=== PATIENT | male | born 1945 | race African-American/Black ===

== ENCOUNTER 2017-10-11 09:53 | Day surgery (SDC) | payer OTHER, BC ==
[2017-10-10 10:34] VITALS: BMI 24.3
[2017-10-11 16:17] VITALS: TEMP 98
[2017-10-11 16:34] VITALS: BP 136/76; PULSE 69
== END 2017-10-11 16:45 | disposition home or self-care (01) ==
LOC: JASU-SURG 09:53
PROVIDERS: ATTEND Urology
PROC: 0V503ZZ Destruction of Prostate, Percutaneous Approach (ICD-10-PCS; principal; 2017-10-11)
DX: C61 Malignant neoplasm of prostate (principal)
CPT/HCPCS: 55873; C2618; 94760

== ENCOUNTER 2017-10-20 00:25 | Emergency (ER) | payer OTHER ==
--- NOTE | 2017-10-20 00:36 | PDOC ---
History of Present Illness - General History Source: Patient, Family Exam Limitations: No Limitations - History of Present Illness Initial Comments: 10/20/17 01:36 Patient is a 72 year old male with a significant past medical history of HTN, who presents to the ED with complaints of urinary retention that began earlier today while at home. Patient reports getting a prostate biopsy last week due to blood results indicating high levels of PSA. He reports being fine and not experiencing any negatives symptoms following the procedure until this afternoon. Patient reports experiencing gradually increased abdominal pain secondary to urinary retention. Denies chest pain, Sob. Denies nausea, vomiting. Denies trauma to affected area. Denies constipation, diarrhea. Denies contact with sick individuals, out of state travelling. Denies any other symptoms. Allergies: None Social history: No smoking. No alcohol. No illicit drugs. Surgical history: prostate cryoablation and cystoscopy PMD: Dr. Tao, Dr. Graham <Jorgito Ramirez - Last Filed: 10/20/17 01:36> <Vanda Yu - Last Filed: 10/21/17 03:11> - General Stated Complaint: PAIN Time Seen by Provider: 10/20/17 00:32 Past History <Jorgito Ramirez - Last Filed: 10/20/17 01:36> - Past Medical History Anemia: No Asthma: No Cancer: No Cardiac Disorders: No CVA: No COPD: No CHF: No Dementia: No Diabetes: No GI Disorders: No Disorders: No HTN: Yes Hypercholesterolemia: No Liver Disease: No Seizures: No Thyroid Disease: No - Surgical History Appendectomy: Yes - Suicide/Smoking/Psychosocial Hx Smoking History: Never smoked Hx Alcohol Use: No Drug/Substance Use Hx: No Substance Use Type: None Hx Substance Use Treatment: No <Vanda Yu - Last Filed: 10/21/17 03:11> - Past Medical History Allergies/Adverse Reactions: Allergies Allergy/AdvReac Type Severity Reaction Status Date / Time No Known Allergies Allergy Verified 10/20/17 00:42 Home Medications: Ambulatory Orders Amlodipine Besylate [Norvasc -] 10 mg PO DAILY 10/10/17 Benazepril/Hydrochlorothiazide [Benazepril-Hctz 20-25 mg Tab] 1 each PO DAILY Oxycodone HCl/Acetaminophen [Percocet 5-325 mg Tablet] 1 - 2 tab PO Q4H PRN #20 tablet MDD 6 10/11/17 Sulfamethoxazole/Trimethoprim [Bactrim Ds Tablet] 1 each PO DAILY 10/11/17 Review of Systems - Review of Systems Able to Perform ROS?: Yes Comments:: 10/20/17 01:36 GENERAL/CONSTITUTIONAL: No fever or chills. No weakness. HEAD, EYES, EARS, NOSE AND THROAT: No change in vision. No ear pain or discharge. No sore throat. CARDIOVASCULAR: No chest pain or shortness of breath. RESPIRATORY: No cough, wheezing, or hemoptysis. GASTROINTESTINAL: No nausea, vomiting, diarrhea or constipation. GENITOURINARY: +Urinary retention. No dysuria, frequency MUSCULOSKELETAL: No joint or muscle swelling or pain. No neck or back pain. SKIN: No rash NEUROLOGIC: No headache, vertigo, loss of consciousness, or change in strength/ sensation. ENDOCRINE: No increased thirst. No abnormal weight change. HEMATOLOGIC/LYMPHATIC: No anemia, easy bleeding, or history of blood clots. ALLERGIC/IMMUNOLOGIC: No hives or skin allergy. <Jorgito Ramirez - Last Filed: 10/20/17 01:36> *Physical Exam - Vital Signs Last Vital Signs Temp Pulse Resp BP Pulse Ox 97.7 F 121 H 24 154/78 99 10/20/17 00:37 10/20/17 00:37 10/20/17 00:37 10/20/17 00:37 10/20/17 00:37 - Physical Exam Comments: 10/20/17 01:36 GENERAL: Awake, alert, and fully oriented, in no acute distress HEAD: No signs of trauma EYES: PERRLA, EOMI, sclera anicteric, conjunctiva clear ENT: Auricles normal inspection, hearing grossly normal, nares patent, oropharynx clear without exudates. Moist mucosa NECK: Normal ROM, supple, no lymphadenopathy, JVD, or masses LUNGS: Breath sounds equal, clear to auscultation bilaterally. No wheezes, and no crackles HEART: Regular rate and rhythm, normal S1 and S2, no murmurs, rubs or gallops ABDOMEN: Soft, nontender, normoactive bowel sounds. No guarding, no rebound. No masses EXTREMITIES: Normal range of motion, no edema. No clubbing or cyanosis. No cords, erythema, or tenderness NEUROLOGICAL: Cranial nerves II through XII grossly intact. Normal speech, normal gait SKIN: Warm, Dry, normal turgor, no rashes or lesions noted. <Jorgito Ramirez - Last Filed: 10/20/17 01:36> ED Treatment Course - ADDITIONAL ORDERS Additional order review: Laboratory Results 10/20/17 00:40 Urine Color Straw Urine Appearance Clear Urine pH 7.[address] 1.010 Urine Protein Negative Urine Glucose (UA) Negative Urine Ketones Negative Urine Blood 2+ H Urine Nitrite Negative Urine Bilirubin Negative Urine Urobilinogen Negative Ur Leukocyte Esterase Negative Urine WBC (Auto) 3 Urine RBC (Auto) 20 Ur Epithelial Cells Rare Urine Mucus Rare <Jorgito Ramirez - Last Filed: 10/20/17 01:36> Medical Decision Making - Medical Decision Making 10/21/17 03:10 Pt comes with severe pain. Urinary retention. Olvera cath placed by myself. Pt got immediate relief. 1L urine drained. 10/21/17 03:11 Urine clear. No sign of infection. Pt had leg bag placed and he will follow with his urologist. <Vanda Yu - Last Filed: 10/21/17 03:11> *DC/Admit/Observation/Transfer - Attestations Scribe Attestion: 10/20/17 01:36 Documentation prepared by Jorgito Ramirez, acting as chief medical director for Vanda Yu MD/DO. <Jorgito Ramirez - Last Filed: 10/20/17 01:36> - Discharge Dispostion Admit: No <Vanda Yu - Last Filed: 10/21/17 03:11> Diagnosis at time of Disposition: Urinary retention - Discharge Dispostion Disposition: HOME Condition at time of disposition: Improved - Referrals Referrals: Madi Ni MD [Staff Physician] - - Patient Instructions Printed Discharge Instructions: DI for Urinary Retention in Men
[2017-10-20 00:52] LABS: URINE APPEARANCE CLEAR; URINE BILIRUBIN NEGATIVE (<2.0 mg/dL); URINE BLOOD 2+ (NEGATIVE); URINE COLOR STRAW; URINE GLUCOSE (UA) NEGATIVE (NEGATIVE); URINE KETONE NEGATIVE (NEGATIVE); URINE LEUK ESTERASE NEGATIVE (NEGATIVE); URINE NITRITE NEGATIVE (NEGATIVE); URINE PROTEIN NEGATIVE (NEGATIVE); URINE UROBILINOGEN NEGATIVE mg/dL (0.2-1.0)
[2017-10-20 00:56] VITALS: BP 154/78; PULSE 121; TEMP 97.7; BMI 25.0
[2017-10-20 01:02] LABS: EPI CELLS RARE /HPF (FEW); URINE MUCUS RARE
== END 2017-10-20 01:39 | disposition home or self-care (01) ==
LOC: JER 00:25
PROC: 0T9B70Z Drainage of Bladder with Drainage Device, Via Natural or Artificial Opening (ICD-10-PCS; principal; 2017-10-20)
DX: R33.8 Other retention of urine (principal)
CPT/HCPCS: 51702; 81003; 81015; 99282-25

== ENCOUNTER 2017-10-30 09:32 | Emergency (ER) | payer OTHER, BC ==
[2017-10-30 09:42] VITALS: TEMP 98.6; BMI 24.4
--- NOTE | 2017-10-30 10:07 | PDOC ---
History of Present Illness - General History Source: Patient, Old Records Exam Limitations: No Limitations - History of Present Illness Initial Comments: 10/30/17 11:20 The patient is a 72 year old male with history of hypertension who is s/p Mock catheter removal yesterday who presents to the ED complaining of urinary retention that began last night. The patient had the mock placed for urinary retention about 1 week ago. A Mock catheter was placed at that time. Yesterday , his catheter was removed by his urologist Dr. Ni. He subsequently noticed urinary retention last began around 10 PM last night. He states he has only been able to "dribble". He also reports associated progressively worsening suprapubic pain. He denies fever or chills. No flank pain. Urologist: Dr. Madi Ni <Yael Larry - Last Filed: 10/30/17 12:23> <jC Casillas - Last Filed: 10/30/17 12:46> - General Chief Complaint: Urinary Catheter Problem Stated Complaint: UNABLE TO URINATE Time Seen by Provider: 10/30/17 09:46 Past History <Yael Larry - Last Filed: 10/30/17 12:23> - Past Medical History Anemia: No Asthma: No Cancer: No Cardiac Disorders: No CVA: No COPD: No CHF: No Dementia: No Diabetes: No GI Disorders: No Disorders: No HTN: Yes Hypercholesterolemia: No Liver Disease: No Seizures: No Thyroid Disease: No - Surgical History Appendectomy: Yes - Immunization History Immunization Up to Date: Yes - Suicide/Smoking/Psychosocial Hx Smoking History: Never smoked Have you smoked in the past 12 months: No Information on smoking cessation initiated: No Hx Alcohol Use: No Drug/Substance Use Hx: No Substance Use Type: None Hx Substance Use Treatment: No <Cj Casillas - Last Filed: 10/30/17 12:46> - Past Medical History Allergies/Adverse Reactions: Allergies Allergy/AdvReac Type Severity Reaction Status Date / Time No Known Allergies Allergy Verified 10/30/17 09:39 Home Medications: Ambulatory Orders Amlodipine Besylate [Norvasc -] 10 mg PO DAILY 10/10/17 Benazepril/Hydrochlorothiazide [Benazepril-Hctz 20-25 mg Tab] 1 each PO DAILY Silodosin [Rapaflo] 8 mg PO DAILY 10/30/17 Review of Systems - Review of Systems Able to Perform ROS?: Yes Comments:: 10/30/17 11:20 GENERAL/CONSTITUTIONAL: No fever or chills. No weakness. HEAD, EYES, EARS, NOSE AND THROAT: No change in vision. No ear pain or discharge. No sore throat. GASTROINTESTINAL: No nausea, vomiting, diarrhea or constipation. GENITOURINARY: +Urinary retention, suprapubic pain. No flank pain. CARDIOVASCULAR: No chest pain or shortness of breath. RESPIRATORY: No cough, wheezing, or hemoptysis. MUSCULOSKELETAL: No joint or muscle swelling or pain. No neck or back pain. SKIN: No rash NEUROLOGIC: No headache, vertigo, loss of consciousness, or change in strength/ sensation. ENDOCRINE: No increased thirst. No abnormal weight change. HEMATOLOGIC/LYMPHATIC: No anemia, easy bleeding, or history of blood clots. ALLERGIC/IMMUNOLOGIC: No hives or skin allergy. <Yael Larry - Last Filed: 10/30/17 12:23> *Physical Exam - Vital Signs Last Vital Signs Temp Pulse Resp BP Pulse Ox 98.6 F 118 H 19 151/80 97 10/30/17 09:40 10/30/17 09:40 10/30/17 09:40 10/30/17 09:40 10/30/17 09:40 - Physical Exam Comments: 10/30/17 11:21 GENERAL: Awake, alert, and fully oriented. +Uncomfortable appearing. HEAD: No signs of trauma EYES: PERRLA, EOMI, sclera anicteric, conjunctiva clear ENT: Auricles normal inspection, hearing grossly normal, nares patent, oropharynx clear without exudates. Moist mucosa NECK: Normal ROM, supple, no lymphadenopathy, JVD, or masses LUNGS: Breath sounds equal, clear to auscultation bilaterally. No wheezes, and no crackles HEART: tachy but regular, normal S1 and S2, no murmurs, rubs or gallops ABDOMEN: Soft, nontender, normoactive bowel sounds. No guarding, no rebound. No masses. +lower abdominal distention. EXTREMITIES: Normal range of motion, no edema. No clubbing or cyanosis. No cords, erythema, or tenderness BACK: No midline spinal tenderness in cervical/thoracic/lumbar region NEUROLOGICAL: Normal speech, cranial nerves intact, negative pronator drift, 5/ 5 strength in all 4 extremities, normal sensation to light touch in all 4 extremities SKIN: Warm, Dry, normal turgor, no rashes or lesions noted. <Yael Larry - Last Filed: 10/30/17 12:23> - Vital Signs Last Vital Signs Temp Pulse Resp BP Pulse Ox 98.6 F 118 H 19 151/80 97 10/30/17 09:40 10/30/17 09:40 10/30/17 09:40 10/30/17 09:40 10/30/17 09:40 <[email or web address] - Last Filed: 10/30/17 12:46> ED Treatment Course - ADDITIONAL ORDERS Additional order review: Laboratory Results 10/30/17 10:00 Urine Color Yellow Urine Appearance Slcloudy Urine pH 6.0 Ur Specific [place] 1.012 Urine Protein 1+ H Urine Glucose (UA) Negative Urine Ketones Negative Urine Blood 2+ H Urine Nitrite Positive Urine Bilirubin Negative Urine Urobilinogen Negative Ur Leukocyte Esterase 2+ H Urine WBC (Auto) 36 Urine RBC (Auto) 5 Urine Bacteria Rare <Yael Larry - Last Filed: 10/30/17 12:23> Medical Decision Making - Medical Decision Making 10/30/17 12:24 Placed call to office of patient's urologist, Dr. Ni, at [phone]. Office recommended paging Dr. Ni overhead in hospital. Two attempts to overhead page unsuccessful. Again called office of Dr. Ni at [phone]. Left message with office staff. Awaiting callback from Dr. Ni. <Yael Larry - Last Filed: 10/30/17 12:23> - Medical Decision Making 10/30/17 10:05 72-year-old male with multiple medical problems presents to the emergency Department with urinary retention after Mock removal yesterday. Vitals remarkable for tachycardia to 118, likely secondary to discomfort. Exam with distended lower abdomen consistent with urinary retention. Will replace Mock, send urinalysis and discuss with his urologist Dr. Ni. 10/30/17 12:44 Mock placement patient observed, 1 L of urine output in Mock bag. Urinalysis with nitrite positive UTI, we'll treat with Bactrim. Case discussed with Dr. Tao who recommends treatment for UTI and follow-up in one week. Patient feels much better repeat heart rate is 92. Requests discharge home. I discussed the physical exam findings, ancillary test results and final diagnoses with the patient. I answered all of the patient's questions. The patient was satisfied with the care received and felt comfortable with the discharge plan and treatment plan. The patient will call their primary care physician within 24 hours to arrange follow-up and will return to the Emergency Department with any new, persistent or worsening symptoms. <Cj Casillas - Last Filed: 10/30/17 12:46> *DC/Admit/Observation/Transfer - Attestations Scribe Attestion: 10/30/17 11:20 Documentation prepared by Yael Larry, acting as medical van driver for Cj Casillas MD. <Yael Larry - Last Filed: 10/30/17 12:23> - Discharge Dispostion Decision to Admit order: No - Attestations Physician Attestion: 10/30/17 12:46 I, Dr. Cj Casillas MD, attest that this document has been prepared under my direction and personally reviewed by me in its entirety. I further attest, that it accurately reflects all work, treatment, procedures and medical decision -making performed by me. <Cj Casillas - Last Filed: 10/30/17 12:46> Diagnosis at time of Disposition: Urinary retention, UTI (urinary tract infection) - Discharge Dispostion Disposition: HOME Condition at time of disposition: Stable - Referrals Referrals: Madi Ni MD [Staff Physician] - - Patient Instructions Printed Discharge Instructions: DI for Urinary Retention in Men Additional Instructions: As discussed, follow-up with Dr. Ni in 1 week. Take your antibiotics as prescribed. Return to the emergency department if you have any new, worsening or concerning symptoms.
[2017-10-30 10:14] LABS: URINE APPEARANCE SLCLOUDY; URINE BILIRUBIN NEGATIVE (<2.0 mg/dL); URINE COLOR YELLOW; URINE GLUCOSE (UA) NEGATIVE (NEGATIVE); URINE KETONE NEGATIVE (NEGATIVE); URINE NITRITE POSITIVE (NEGATIVE); URINE UROBILINOGEN NEGATIVE mg/dL (0.2-1.0)
[2017-10-30 10:23] LABS: URINE LEUK ESTERASE 2+ (NEGATIVE); URINE PROTEIN 1+ (NEGATIVE)
[2017-10-30 10:24] LABS: URINE BACTERIA RARE /hpf (NONE SEEN)
[2017-10-30] MEDS ORDERED: SULFAMETHOXAZOLE/TRIMETHOPRIM 800MG/160MG D.S. TABLET PO ONE (12:47)
[2017-10-30] MEDS ORDERED: SULFAMETHOXAZOLE/TRIMETHOPRIM 800MG/160MG D.S. TABLET ONE (13:24)
[2017-10-30 13:32] VITALS: BP 130/67; PULSE 100
== END 2017-10-30 13:45 | disposition home or self-care (01) ==
LOC: JER 09:32
PROC: 0T9B70Z Drainage of Bladder with Drainage Device, Via Natural or Artificial Opening (ICD-10-PCS; principal; 2017-10-30)
DX: N39.0 Urinary tract infection, site not specified (principal); R33.8 Other retention of urine; R00.0 Tachycardia, unspecified; I10 Essential (primary) hypertension
CPT/HCPCS: 81003; 81015; 87086; 87186; 99282-25